=== PATIENT | male | born 1990 | race African-American/Black ===

== ENCOUNTER → 2021-06-20 | Outpatient (REF) | payer OTHER ==
[2021-06-20 22:08] LABS: GC DNA AMPLIFICATION NEGATIVE (NEGATIVE)
== END ==
LOC: M WUC 19:04
PROVIDERS: ATTEND Physician Assistant
DX: R30.0 Dysuria (principal); Z20.828 Contact with and (suspected) exposure to other viral communicable diseases

== ENCOUNTER → 2021-06-21 | Outpatient (CLI) | payer OTHER ==
[2021-06-21 17:33] LABS: HIV 1&2 SCREEN CENTAUR NEGATIVE (NEGATIVE)
== END ==
LOC: M WUC 13:47
PROVIDERS: ATTEND Physician Assistant
DX: R30.0 Dysuria (principal); Z20.828 Contact with and (suspected) exposure to other viral communicable diseases

== ENCOUNTER 2021-08-20 20:49 | Emergency (ER) | payer OTHER ==
[~2021-08-20] VITALS: Ht 177.8 cm; Wt 95.5 kg
[2021-08-20 20:50] VITALS: BP 139/70
[2021-08-21] MEDS ORDERED: ACETAMINOPHEN 325 MG TAB PO ONE (00:55)
== END 2021-08-21 01:21 | disposition home or self-care (01) ==
LOC: M ED 20:49
DX: S93.492A Sprain of other ligament of left ankle, initial encounter (principal); X50.9XXA Other and unspecified overexertion or strenuous movements or postures, initial encounter; Y92.310 Basketball court as the place of occurrence of the external cause; Y93.67 Activity, basketball

== ENCOUNTER 2022-09-24 23:06 | Emergency (ER) | payer OTHER ==
[~2022-09-24] VITALS: Ht 177.8 cm; Wt 98.6 kg
[2022-09-25] MEDS ORDERED: BACT800T5 PO (01:28)
[2022-09-25] MEDS ORDERED: LIDOCAINE 1% MDV 20ML VIAL SC ONE (01:30)
[2022-09-25] MEDS ORDERED: BACTRIM 160MG/800MG DS TAB PO ONE (01:50)
[2022-09-25 02:13] VITALS: BP 124/62
== END 2022-09-25 02:13 | disposition home or self-care (01) ==
LOC: M ED 23:06
DX: L05.91 Pilonidal cyst without abscess (principal); S30.0XXA Contusion of lower back and pelvis, initial encounter; Y92.89 Other specified places as the place of occurrence of the external cause; Y93.89 Activity, other specified; Y99.8 Other external cause status

== ENCOUNTER → 2024-03-07 | Outpatient (REF) | payer OTHER ==
[~2024-03-07] MED LIST: BACT800T5 PO
[2024-03-07 18:27] LABS: Trichomonas vaginalis (AMP) NOT DETECTED (NEGATIVE)
[2024-03-07 18:51] LABS: GC DNA AMPLIFICATION NEGATIVE (NEGATIVE)
== END ==
LOC: M LAB REF 16:19
PROVIDERS: ATTEND Nurse Practitioner Family
DX: R30.0 Dysuria (principal); Z11.3 Encounter for screening for infections with a predominantly sexual mode of transmission